=== PATIENT | male | born 1995 | race Caucasian/White ===

== ENCOUNTER 2019-06-29 21:06 | Emergency (ER) | payer OTHER ==
[~2019-06-29] VITALS: Ht 165.1 cm; Wt 63.5 kg
[2019-06-29 21:09] VITALS: BP 161/118
--- NOTE | 2019-06-29 21:09 | NUR ---
PATIENT BIB [facility] [employer] FOR PREBOOK. C/O SOB AND GENERALFEELING ILL. RR 16, EVEN AND REGLUAR. O2SAT 99% RA. NO SOB/DYSPNEA PRESNT AT THIS TIME. LUNGS CLEAR IN ALL LUNG ARROYO. AFEBRILE WITH VSS. ER MD AWARE. CONTINUE TO MONITOR.
[2019-06-29 21:24] VITALS: BP 161/118
--- NOTE | 2019-06-29 21:24 | NUR ---
PATIENT EXAMINED BY DR. ARREOLA. PATIENT MEDICALLY CLEARED AND RELEASED IN CUSTODY IN STABLE CONDITION. ORIGINAL PRE-BOOK FORM GIVEN TO [facility].
== END 2019-06-29 21:24 ==
LOC: MED 21:06
DX: F41.9 Anxiety disorder, unspecified (principal); J45.909 Unspecified asthma, uncomplicated; Z88.0 Allergy status to penicillin; Z98.890 Other specified postprocedural states
CPT/HCPCS: 99283